=== PATIENT | male | born 2000 | race Caucasian/White ===

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

== ENCOUNTER 2018-06-07 21:34 | Emergency (ER) | payer BC ==
[~2018-06-07] VITALS: Ht 175.3 cm; Wt 63.6 kg
[2018-06-07 21:40] VITALS: BP 125/67; TEMP 97.2
[2018-06-07 22:25] VITALS: PULSE 92
== END 2018-06-07 22:32 | disposition home or self-care (01) ==
LOC: COL.ER 21:34
DX: S01.01XA Laceration without foreign body of scalp, initial encounter (principal); W01.198A Fall on same level from slipping, tripping and stumbling with subsequent striking against other object, initial encounter; Y92.009 Unspecified place in unspecified non-institutional (private) residence as the place of occurrence of the external cause

== ENCOUNTER 2018-06-11 13:16 | Emergency (ER) | payer BC ==
[2018-06-11 13:20] VITALS: BP 124/66; PULSE 67; TEMP 97.3
== END 2018-06-11 13:22 | disposition home or self-care (01) ==
LOC: COL.ER 13:16
DX: S01.01XD Laceration without foreign body of scalp, subsequent encounter (principal); X58.XXXD Exposure to other specified factors, subsequent encounter